=== PATIENT | male | born 1940 | race American Indian/Alaskan Native ===

== ENCOUNTER 2016-08-16 06:56 | Day surgery (SDC) | payer MEDICAID ==
[2016-08-16 07:47] VITALS: BMI 20.7
[2016-08-16 08:23] VITALS: TEMP 97.4
[2016-08-16] MEDS ORDERED: Propofol 10 mg/ml Inj (20 ML) ONE ×2 (08:35→09:03)
[2016-08-16] MEDS ORDERED: Lactated Ringer's 500 ML IV ONE (08:39)
[2016-08-16 08:53] VITALS: O2SAT 100
[2016-08-16 10:36] VITALS: PULSE 61
[2016-08-16 10:38] VITALS: RESP 16
[2016-08-16 11:40] VITALS: BP 177/98
== END 2016-08-16 11:15 | disposition home or self-care (01) ==
LOC: C.ENDO 06:56
PROVIDERS: ATTEND Internal Medicine Gastroenterology
DX: D12.2 Benign neoplasm of ascending colon (principal); R13.10 Dysphagia, unspecified; D12.5 Benign neoplasm of sigmoid colon; K29.50 Unspecified chronic gastritis without bleeding
CPT/HCPCS: 43239; 45380; 88305; J2704; J3010; J7120

== ENCOUNTER 2018-02-13 16:49 | Emergency (ER) | payer MEDICAID, MEDICARE ==
[2018-02-13 16:49] VITALS: BMI 20.7
[2018-02-13 17:03] VITALS: TEMP 98.3; O2SAT 97
[2018-02-13] MEDS ORDERED: Sodium Chloride 0.9% 1,000 ML IV ONE ×2 (17:24→18:56)
--- NOTE | 2018-02-13 17:40 | C.PDOC ---
History Of Present Illness 77 y/o male comes in complaining of epigastric abdominal pain, associated with vomiting and watery diarrhea since yesterday. States pain radiates around the left side of his back. Denies fever, but does have chills. Patient tried to eat and drink, but he just continues to vomit and hasnt tolerated anything since yesterday. Patient has no other complaints. Time Seen by Provider: 02/13/18 17:20 Chief Complaint (Nursing): Dizziness/Lightheaded History Per: Patient History/Exam Limitations: no limitations Onset/Duration Of Symptoms: Days Current Symptoms Are (Timing): Still Present Past Medical History Reviewed: Historical Data, Nursing Documentation, Vital Signs Vital Signs: Last Vital Signs Temp 98.3 F 02/13/18 17:00 Pulse 96 H 02/13/18 17:00 Resp 18 02/13/18 17:00 BP 176/88 H 02/13/18 17:00 Pulse Ox 97 02/13/18 17:00 - Medical History PMH: Anxiety, Depression, HTN, Sexually Transmitted Disease (HERPES) Denies: Colonic Polyps, Diabetes, Fractures, Hepatitis, Chronic Kidney Disease, Seizures, TIA Surgical History: Denies: Endoscopy - [facility] Procedures BUNIONECTOMY NEC (06/12/13) GROUP PSYCHOTHERAPY (03/29/16) INDIVIDUAL PSYCHOTHERAPY, COGNITIVE-BEHAVIORAL (03/29/16) INTRODUCTION OF SERUM/TOX/VACCINE INTO MUSCLE, PERC APPROACH (03/29/16) OTH BUNIONECT W SFT KORY (06/12/13) PHYSICAL THERAPY NEC (09/11/13) Family History: States: No Known Family Hx - Social History Hx Alcohol Use: No Hx Substance Use: No - Immunization History Hx Tetanus Toxoid Vaccination: No Hx Influenza Vaccination: No Hx Pneumococcal Vaccination: No Review Of Systems Constitutional: Positive for: Chills. Negative for: Fever Cardiovascular: Negative for: Chest Pain Respiratory: Negative for: Shortness of Breath Gastrointestinal: Positive for: Vomiting, Abdominal Pain (epigastric region, radiating to left side of the back), Diarrhea Physical Exam - Physical Exam Appears: Non-toxic, No Acute Distress, Other (Hydrated) Skin: Warm, Dry Head: Atraumatic, Normacephalic Eye(s): bilateral: Normal Inspection, PERRL, EOMI Oral Mucosa: Moist Neck: Supple Chest: Symmetrical Cardiovascular: Rhythm Regular, No Murmur Respiratory: Normal Breath Sounds, No Rales, No Rhonchi, No Wheezing Gastrointestinal/Abdominal: Soft, Tenderness (in epigastrium), Guarding Extremity: Bilateral: Atraumatic, Normal Color And Temperature, Normal ROM Neurological/Psych: Oriented x3, Normal Speech ED Course And Treatment - Laboratory Results Result Diagrams: 02/13/18 17:37 02/13/18 17:37 Lab Interpretation: No Acute Changes O2 Sat by Pulse Oximetry: 97 (RA) Pulse Ox Interpretation: Normal Reevaluation Time: 20:52 Reassessment Condition: Improved (Patient states that he feels better. PO challenge offered. fluids tolerated.) Medical Decision Making Medical Decision Making: Plan: -- Bloodwork --Stool culture --UA --Protonix IV --IV fluids --Zofran IV Disposition Counseled Patient/Family Regarding: Studies Performed, Diagnosis, Need For Followup, Rx Given - Disposition Referrals: Anthony Engel MD [Staff Provider] - Disposition: HOME/ ROUTINE Disposition Time: 21:33 Condition: IMPROVED Prescriptions: Ondansetron ODT [Zofran ODT] 1 odt PO QID PRN #10 odt PRN Reason: Nausea/Vomiting Instructions: Nausea and Vomiting, Adult, Diarrhea in Adolescents and Adults Forms: [facility] ([place]an) - Clinical Impression Clinical Impression: Vomiting, Diarrhea - Scribe Statement The provider has reviewed the documentation as recorded by the [employer] Gilliam Provider Attestation: All medical record entries made by the [employer] were at my direction and personally dictated by me. I have reviewed the chart and agree that the record accurately reflects my personal performance of the history, physical exam, medical decision making, and the department course for this patient. I have also personally directed, reviewed, and agree with the discharge instructions and disposition.
[2018-02-13 17:43] LABS: BASO % 0.8 % (0.0-2.0); EOS % 0.7 % (0.0-4.0); LYMPH # 1.2 K/uL (1.0-4.3); LYMPH % 18.5 % (20.0-40.0); MEAN CELL VOLUME 87.2 fL (80.0-94.0); MEAN CORPUSCULAR HEMOGLOBIN 27.4 pg (27.0-31.0); MEAN CORPUSCULAR HGB CONC 31.5 g/dL (33.0-37.0); MEAN PLATELET VOLUME 9.4 fL (7.2-11.7); MONO # 0.6 K/uL (0.0-0.8); MONO % 9.1 % (0.0-10.0); NEUT # 4.5 K/uL (1.8-7.0); NEUT % 70.9 % (50.0-75.0); NRBC % 0.1 % (0.0-2.0); RBC 5.09 Mil/uL (4.40-5.90); RED CELL DISTRIBUTION WIDTH 14.5 % (11.5-14.5); WHITE BLOOD COUNT 6.3 K/uL (4.8-10.8)
[2018-02-13] MEDS ORDERED: Sodium Chloride 0.9% 1,000 ML ONE ×2 (17:54→19:35)
[2018-02-13 18:01] LABS: ALB/GLOB RATIO 1.6 (1.0-2.1); ALBUMIN 4.4 g/dL (3.5-5.0); ALT/SGPT 22 U/L (21-72); AST/SGOT 21 U/L (17-59); BLOOD UREA NITROGEN 19 mg/dL (9-20); CALCIUM 9.1 mg/dl (8.6-10.4); GFR NON-AFRICAN AMERICAN > 60; LIPASE 43 U/L (23-300)
[2018-02-13 18:20] LABS: URINE BACTERIA RARE (<OCC); URINE BILIRUBIN NEGATIVE (NEGATIVE); URINE BLOOD NEGATIVE (NEGATIVE); URINE CLARITY Hazy (Clear); URINE COLOR Amber (YELLOW); URINE GLUCOSE (UA) NORMAL (Normal); URINE LEUKOCYTE ESTERASE NEG Leu/uL (Negative); URINE PROTEIN NEGATIVE (NEGATIVE); URINE UROBILINOGEN NORMAL mg/dL (0.2-1.0)
[2018-02-13 22:11] VITALS: BP 169/95; PULSE 90; RESP 12
--- NOTE | 2018-02-18 14:40 | CARD ---
APPROVED REPORT Date of service: 02/13/2018 EKG Measurement Heart [id number] <Conclusion> Normal sinus rhythm Moderate voltage criteria for LVH, may be normal variant Borderline ECG
== END 2018-02-13 21:55 | disposition home or self-care (01) ==
LOC: C.ER 16:49
DX: R11.10 Vomiting, unspecified (principal); R19.7 Diarrhea, unspecified
CPT/HCPCS: 80053; 81001; 82948; 83690; 85025; 93005; 96361; 96374; 96375; 99285; C9113; J2405; J7030